=== PATIENT | male | born 1965 | race Caucasian/White ===

== ENCOUNTER 2021-06-04 18:45 | Inpatient (IN) | payer MEDICAID ==
[~2021-06-04] VITALS: Ht 154.9 cm; Wt 45.4 kg
[2021-06-04] MEDS ORDERED: ONDANSETRON HCL 4MG/2ML INJ IV STA (19:16)
[2021-06-04] MEDS ORDERED: MORPHINE SULFATE 4 MG/ML CPJ (NOT FOR IM USE) IV STA (19:16)
[2021-06-04] MEDS ORDERED: SODIUM CHLORIDE 0.9% 1,000 ML IV ONE (19:30)
[2021-06-04 19:52] LABS: HEMATOCRIT. 34.4 % (42.0-52.0); HEMOGLOBIN. 11.9 g/dL (14.0-18.0); MEAN CORPUSCULAR HEMOGLOBIN 33.1 pg (28.0-32.0); MEAN CORPUSCULAR VOLUME 95.9 fL (80.0-94.0); MEAN PLATELET VOLUME 6.6 fl (7.4-10.4); PLATELET 57 x1000/uL (130-400); RED BLOOD CELL COUNT 3.58 mill/uL (4.7-6.1); RED CELL DISTRIBUTION WIDTH 14.6 % (11.6-14.6)
[2021-06-04 19:59] LABS: CHLORIDE 99 mEq/L (98-107)
[2021-06-04 20:05] LABS: INR 1.5; PARTIAL THROMBOPLASTIN TIME 36.4 sec (23.4-31.0); PROTHROMBIN TIME 15.6 sec (9.6-11.0)
[2021-06-04 20:30] LABS: PLATELET ESTIMATE DECREASED
[2021-06-04] MEDS ORDERED: LACTULOSE 20G/30ML UDC PO ONE (21:00)
[2021-06-04] MEDS ORDERED: VANCOMYCIN 1G PREMIX 200 ML IV ONE (21:30)
[2021-06-04] MEDS ORDERED: PIPERACILLIN/TAZ 3.375G PREMIX 50 ML IV ONE (21:30)
[2021-06-05] MEDS ORDERED: ACETAMINOPHEN 325MG TABLET PO PRN (02:30)
[2021-06-05] MEDS ORDERED: DOCUSATE SODIUM 100MG CAPSULE PO PRN (02:30)
[2021-06-05] MEDS ORDERED: HYDROCODONE/ACETAMINOPHEN 5/325MG TABLET PO PRN (02:30)
[2021-06-05] MEDS ORDERED: MAGNESIUM/ALUMINUM HYDROXIDE/SIMETHICONE 30ML UDC PO PRN (02:30)
[2021-06-05] MEDS ORDERED: ONDANSETRON HCL 4MG/2ML INJ IV PRN (02:30)
[2021-06-05] MEDS ORDERED: CLONIDINE 0.1MG TABLET PO PRN (02:30)
[2021-06-05] MEDS ORDERED: NALOXONE HCL 0.4 MG/ML 1ML VIAL IV PRN (02:45)
[2021-06-05 06:27] LABS: CLARITY URINE CLEAR (CLEAR); COLOR URINE DARK YELLOW (YELLOW); KETONES URINE NEGATIVE (NEGATIVE); LEUKOCYTE ESTERASE URINE TRACE (NEGATIVE); NITRITE URINE NEGATIVE (NEGATIVE); OCCULT BLOOD URINE NEGATIVE (NEGATIVE); PH URINE 5.5 (4.5-8.0); PROTEIN URINE NEGATIVE (NEGATIVE); SPECIFIC GRAVITY URINE 1.035 (1.005-1.030)
[2021-06-05] MEDS: LACTULOSE 20G/30ML UDC PO SCH ×3 (10:43→21:58)
[2021-06-05] MEDS: AMLODIPINE 10MG TABLET PO SCH (10:44)
[2021-06-05] MEDS: HYDROMORPHONE HCL/PF 2MG/ML CPJ IV PRN ×2 (12:14→21:59)
[2021-06-05] MEDS: NITROGLYCERIN OINT 1GM/INCH UDPKT TD SCH ×2 (13:28→21:58)
[2021-06-05] MEDS ORDERED: LEVOFLOXACIN 500MG PREMIX 100 ML IV SCH (15:00)
[2021-06-05 15:54] VITALS: BP 133/95
[2021-06-05 16:23] LABS: LDL CHOLESTEROL 85 mg/dL (5-100)
[2021-06-05 16:25] LABS: HDL CHOLESTEROL 36 mg/dL (40-59)
[2021-06-05 20:00] VITALS: BP 115/82
[2021-06-05 22:00] VITALS: BP 92/69
[2021-06-06] VITALS: BP 100/81
[2021-06-06 02:00] VITALS: BP 110/71
[2021-06-06] MEDS: HYDROMORPHONE HCL/PF 2MG/ML CPJ IV PRN (02:19)
[2021-06-06 04:00] VITALS: BP 110/75
[2021-06-06] MEDS: LACTULOSE 20G/30ML UDC PO SCH (05:39)
[2021-06-06] MEDS: NITROGLYCERIN OINT 1GM/INCH UDPKT TD SCH (05:40)
[2021-06-06 06:00] VITALS: BP 115/78
[2021-06-06 06:11] LABS: HEMATOCRIT. 35.2 % (42.0-52.0); MEAN CORPUSCULAR HEMOGLOBIN 32.4 pg (28.0-32.0); MEAN CORPUSCULAR VOLUME 95.2 fL (80.0-94.0); MEAN PLATELET VOLUME 7.6 fl (7.4-10.4); PLATELET 76 x1000/uL (130-400); RED CELL DISTRIBUTION WIDTH 14.7 % (11.6-14.6)
[2021-06-06 06:33] LABS: CHLORIDE 99 mEq/L (98-107)
[2021-06-06 08:00] VITALS: BP 106/68
[2021-06-06] MEDS: AMLODIPINE 10MG TABLET PO SCH (09:00)
[2021-06-06] MEDS ORDERED: SODIUM POLYSTYRENE SULFONATE 15 G/60 ML BOT PO NR (10:45)
[2021-06-06 12:00] VITALS: BP 128/77
[2021-06-06 16:50] LABS: PLATELET ESTIMATE DECREASED
== END 2021-06-06 14:44 | disposition home or self-care (01) | DRG 279 ==
LOC: ER 18:45 → MICUSO 21:23 → EDBEDREQTM 21:29 → EDBEDREQ 21:29 → 8WST 06-05 12:04
PROVIDERS: ADMIT Hospitalist; ATTEND Hospitalist
DX: K72.00 Acute and subacute hepatic failure without coma (principal); E43 Unspecified severe protein-calorie malnutrition; D69.6 Thrombocytopenia, unspecified; D68.9 Coagulation defect, unspecified; J90 Pleural effusion, not elsewhere classified; E87.1 Hypo-osmolality and hyponatremia; R73.9 Hyperglycemia, unspecified; R07.89 Other chest pain; R18.8 Other ascites; K74.60 Unspecified cirrhosis of liver; Z68.1 Body mass index [BMI] 19.9 or less, adult; Z20.822 Contact with and (suspected) exposure to COVID-19; Z86.73 Personal history of transient ischemic attack (TIA), and cerebral infarction without residual deficits
CPT/HCPCS: 36415; 71045; 72128; 72131; 80048; 80053; 80061; 81003; 82140; 83036; 83605; 83735; 83880; 84484; 85025; 86850; 86900; 87426; 93005; 93306; 99291; J1170; J1956; J2270; J2405; J2543; J3370; J7030